=== PATIENT | female | born 1985 | race Caucasian/White ===

== ENCOUNTER → 2020-10-10 | Day surgery (SDC) | payer OTHER ==
[~2020-10-10] VITALS: Ht 157.5 cm; Wt 63.7 kg
[~2020-10-10] MED LIST: COLACE100 MG PO; MOTRIN600 MG PO; NORCO 5-325 TA1 EACH PO; PERCOCET 5-3251 EACH PO; SERTRALINE HCL50 MG PO; ZOFRAN4 M1 PO
[2020-10-10 09:15] LABS: HCG (URINE) SCREEN NEGATIVE (NEGATIVE)
[2020-10-10 09:32] LABS: HCT 33.9 % (37.0-47.0); HGB 10.7 g/dl (12.5-16.0); MCH 26.2 pg (25.0-31.0); MCHC 31.6 g/dL (32.0-36.0); MCV 82.9 fL (78.0-100.0); RBC 4.09 M/uL (4.20-5.40); RDW 14.8 % (11.5-14.0); WBC 4.7 K/uL (4.0-10.5)
== END | disposition home or self-care (01) ==
LOC: FAS 08:52
PROVIDERS: Obstetrics & Gynecology
DX: N84.0 Polyp of corpus uteri (principal); N87.0 Mild cervical dysplasia; N72 Inflammatory disease of cervix uteri; G43.909 Migraine, unspecified, not intractable, without status migrainosus; I10 Essential (primary) hypertension; F32.9 Major depressive disorder, single episode, unspecified; F41.9 Anxiety disorder, unspecified; Z88.0 Allergy status to penicillin; Z79.899 Other long term (current) drug therapy
CPT/HCPCS: 36415; 84703; 86850; 86900; 86901; J1100; J1885; J2250; J2405; J2704; J2710; J3010; J7120